=== PATIENT | male | born 1990 | race Two or more races ===

== ENCOUNTER 2017-07-23 20:04 | Emergency (ER) | payer MEDICAID ==
[2017-07-23 20:28] LABS: ADD MAN DIFF? NO
[2017-07-23 20:36] LABS: BASO % 0 % (0-3); EOS % 0 % (0-3); HEMOGLOBIN 18.7 g/dL (13.0-17.5); LYMPH # 2.5 x10^3/uL (1.0-4.8); LYMPH % 25 % (24-48); MEAN CORPUSCULAR HEMOGLOBIN 31 pg (25-35); MEAN CORPUSCULAR HGB CONC 35 g/dL (31-37); MEAN CORPUSCULAR VOLUME 88 fL (79-100); MONO # 0.6 x10^3/uL (0.0-1.1); MONO % 6 % (0-9); NEUT # 6.8 x10^3uL (1.8-7.7); NEUT % 69 % (31-73); PLATELET COUNT 239 x10^3/uL (140-400); RED BLOOD COUNT 6.03 x10^6/uL (4.30-5.70); RED CELL DISTRIBUTION WIDTH 13.5 % (11.5-14.5)
[2017-07-23 20:41] LABS: ANION GAP 20 (6-14); BLOOD UREA NITROGEN 7 mg/dL (8-26); BUN/CREATININE RATIO 5 (6-20); CALCIUM 9.5 mg/dL (8.5-10.1); CARBON DIOXIDE 18 mmol/L (21-32); CHLORIDE 103 mmol/L (98-107); CREATININE 1.3 mg/dL (0.7-1.3); GFR 66.2; GLUCOSE 103 mg/dL (70-99); POTASSIUM 3.4 mmol/L (3.5-5.1); SODIUM 141 mmol/L (136-145)
[2017-07-23 20:47] LABS: ALBUMIN 4.6 g/dL (3.4-5.0); ALBUMIN/GLOBULIN RATIO 1.1 (1.0-1.7); ALK PHOS 87 U/L (46-116); ALT (SGPT) 31 U/L (16-63); AST (SGOT) 20 U/L (15-37); TOTAL BILIRUBIN 0.5 mg/dL (0.2-1.0); TOTAL PROTEIN 8.7 g/dL (6.4-8.2)
[2017-07-23 20:52] LABS: TROPONINI < 0.017 ng/mL (0.000-0.055)
[2017-07-23] MEDS: IV NORMAL SALINE 1000ML BAG 1,000 ML IV ×2 (20:57→20:59)
[2017-07-23 21:17] LABS: BARBITURATES NEG (NEG); BENZODIAZEPINES NEG (NEG); CANNABINOIDS NEG (NEG); COCAINE NEG (NEG); METHADONE NEG (NEG); OPIATES NEG (NEG); PHENCYCLIDINE NEG (NEG)
[2017-07-23 21:18] LABS: AMPHETAMINE/METHAMPHETAMINE POS (NEG); ETHANOL, URINE POS (NEG)
[2017-07-23 22:33] LABS: D-DIMER < 0.27 ug/mlFEU (0.00-0.50)
[2017-07-23] MEDS: FAMOTIDINE 20 MG TABLET. PO (22:55)
== END 2017-07-24 00:40 | disposition home or self-care (01) ==
LOC: ER 07-24 00:40
DX: R07.89 Other chest pain (principal); F15.90 Other stimulant use, unspecified, uncomplicated; R00.0 Tachycardia, unspecified; F41.9 Anxiety disorder, unspecified; R42 Dizziness and giddiness; R06.02 Shortness of breath
CPT/HCPCS: 36415; 71045; 80053; 80307; 84484; 85025; 85379; 93005; 96361; 96374; 96376; 99285-25; J2060; J7030